=== PATIENT | female | born 1985 | race Caucasian/White ===

== ENCOUNTER 2019-07-16 12:39 | Inpatient (IN) | payer MEDICAID ==
[2019-07-16] MEDS: LACTATED RINGER'S 250 ML IV (14:49)
[2019-07-16] MEDS: CEFAZOLIN 2 GM/50 ML (PMX) 50 ML IVPB (14:50)
[2019-07-16 14:56] LABS: ADD MAN DIFF? NO
[2019-07-16 14:57] LABS: BASOPHILS % 0.3 % (0.0-2.0); HEMATOCRIT 33.1 % (37.0-47.0); HEMOGLOBIN 10.2 g/dl (12.0-16.0); LYMPHOCYTES # 0.9 10^3/ul (0.8-2.9); LYMPHOCYTES % 12.2 % (15.0-51.0); MEAN CORPUSCULAR HEMOGLOBIN 26.6 pg (29.0-33.0); MEAN CORPUSCULAR HGB CONC 30.8 g/dl (32.0-37.0); MEAN CORPUSCULAR VOLUME 86.4 fl (82.0-101.0); MEAN PLATELET VOLUME 9.6 fl (7.4-10.4); MONOCYTE # 0.8 10^3/ul (0.3-0.9); MONOCYTES % 11.1 % (0.0-11.0); NEUTROPHIL # 5.6 10^3/ul (1.6-7.5); NEUTROPHILS % 75.7 % (39.0-77.0); PLATELET COUNT 220 10^3/UL (140-415); RED BLOOD COUNT 3.83 10^6/ul (4.20-5.40); RED CELL DISTRIBUTION WIDTH 15.3 % (11.5-14.5)
[2019-07-16 14:57] LABS: WHITE BLOOD COUNT 7.3 10^3/ul (4.8-10.8)
[2019-07-16 15:23] LABS: ADD UMIC YES; ALANINE AMINOTRANSFERASE 20 IU/L (13-69); ALBUMIN 3.5 g/dl (3.3-4.9); ALKALINE PHOSPHATASE 101 IU/L (42-121); ANION GAP 11 (5-13); ASPARTATE AMINO TRANSFERASE 19 IU/L (15-46); BILIRUBIN,INDIRECT 0.5 mg/dl (0-1.1); BILIRUBIN,TOTAL 0.5 mg/dl (0.2-1.3); BLOOD UREA NITROGEN 7 mg/dl (7-20); CALCIUM 8.7 mg/dl (8.4-10.2); CARBON DIOXIDE 22 mmol/L (21-31); CHLORIDE 101 mmol/L (97-110); CREATININE 0.53 mg/dl (0.44-1.00); Estimated GFR > 60 mL/min (>60); GLUCOSE 82 mg/dl (70-220); POTASSIUM 3.5 mmol/L (3.5-5.1); SODIUM 134 mmol/L (135-144); UR ASCORBIC ACID NEGATIVE (NEGATIVE); UR BACTERIA FEW /HPF (NONE SEEN); UR BILIRUBIN (Dip) NEGATIVE (NEGATIVE); UR BLOOD (Dip) 1+ mg/dL (NEGATIVE); UR CLARITY CLOUDY (CLEAR); UR COLOR AMBER (YELLOW); UR GLUCOSE (Dip) NEGATIVE (NEGATIVE); UR KETONES (Dip) 1+ mg/dL (NEGATIVE); UR LEUKOCYTE ESTERASE (Dip) 2+ Leu/ul (NEGATIVE); UR MUCUS MANY /HPF (NONE SEEN); UR NITRITE (Dip) POSITIVE (NEGATIVE); UR NONSQUAMOUS EPITHELIAL CELL 1 /HPF (NONE SEEN); UR RBC 2 /HPF (0-5); UR SPECIFIC GRAVITY (Dip) 1.015 (1.003-1.030); UR SQUAMOUS EPITHELIAL CELL MODERATE /HPF (FEW); UR TOTAL PROTEIN (Dip) 1+ mg/dl (NEGATIVE); UR UROBILINOGEN (Dip) 2+ mg/dL (NEGATIVE); UR WBC 153 /HPF (0-5)
[2019-07-16] MEDS: ACETAMINOPHEN 500 MG TAB PO (17:30)
[2019-07-16] MEDS: LACTATED RINGER'S 1,000 ML IV ×2 (20:57→23:47)
[2019-07-16] MEDS: CEFAZOLIN 1 GM/50 ML (PMX) 50 ML IVPB (22:00)
[2019-07-17] MEDS: ACETAMINOPHEN 500 MG TAB PO ×3 (00:52→23:13)
[2019-07-17] MEDS: LACTATED RINGER'S 1,000 ML IV ×4 (05:34→23:07)
[2019-07-17] MEDS: CEFAZOLIN 1 GM/50 ML (PMX) 50 ML IVPB (05:43)
[2019-07-17] MEDS: CEFAZOLIN 2 GM/50 ML (PMX) 50 ML IVPB ×2 (14:32→21:54)
[2019-07-18] MEDS: CEFAZOLIN 2 GM/50 ML (PMX) 50 ML IVPB ×3 (05:39→22:12)
[2019-07-18] MEDS: LACTATED RINGER'S 1,000 ML IV ×2 (07:24→16:46)
[2019-07-18] MEDS: ACETAMINOPHEN 500 MG TAB PO (16:42)
[2019-07-19] MEDS: LACTATED RINGER'S 1,000 ML IV (01:15)
[2019-07-19] MEDS: CEFAZOLIN 2 GM/50 ML (PMX) 50 ML IVPB (05:46)
== END 2019-07-19 13:18 | disposition home or self-care (01) | DRG 833 ==
LOC: OBT 12:39 → L-D 12:43 → OBT 17:07 → L-D 17:01 → PP1 17:51
DX: O23.03 Infections of kidney in pregnancy, third trimester (principal); Z3A.30 30 weeks gestation of pregnancy
CPT/HCPCS: 36415; 76817; 76818; 80053; 81001; 85025; 87086; 96360; 96361

== ENCOUNTER 2019-08-11 18:48 | Inpatient (IN) | payer MEDICAID ==
[2019-08-11] MEDS ORDERED: LACTATED RINGER'S 1,000 ML IV (20:00)
[2019-08-11] MEDS: LACTATED RINGER'S 1,000 ML IV ×2 (20:52→22:13)
[2019-08-11 22:11] LABS: ADD UMIC YES; UR ASCORBIC ACID NEGATIVE (NEGATIVE); UR BILIRUBIN (Dip) NEGATIVE (NEGATIVE); UR BLOOD (Dip) NEGATIVE (NEGATIVE); UR CALCIUM OXALATE CRYSTAL MANY /HPF (NONE SEEN); UR CLARITY CLOUDY (CLEAR); UR COLOR AMBER (YELLOW); UR GLUCOSE (Dip) NEGATIVE (NEGATIVE); UR KETONES (Dip) TRACE mg/dL (NEGATIVE); UR LEUKOCYTE ESTERASE (Dip) NEGATIVE Leu/ul (NEGATIVE); UR MUCUS MANY /HPF (NONE SEEN); UR NITRITE (Dip) NEGATIVE (NEGATIVE); UR RBC 5 /HPF (0-5); UR SPECIFIC GRAVITY (Dip) 1.033 (1.003-1.030); UR SQUAMOUS EPITHELIAL CELL MODERATE /HPF (FEW); UR TOTAL PROTEIN (Dip) 1+ mg/dl (NEGATIVE); UR UROBILINOGEN (Dip) 2+ mg/dL (NEGATIVE); UR WBC 0 /HPF (0-5)
[2019-08-11] MEDS ORDERED: MAGNESIUM SULFATE 20 GM/500 ML 500 ML IV ×2 (22:13→22:14)
[2019-08-11] MEDS ORDERED: MAGNESIUM SULFATE 4 GM/100 ML 100 ML IV (22:30)
[2019-08-11 22:44] LABS: ADD MAN DIFF? NO
[2019-08-11 22:50] LABS: WHITE BLOOD COUNT 9.1 10^3/ul (4.8-10.8)
[2019-08-11 22:50] LABS: BASOPHILS % 0.2 % (0.0-2.0); EOSINOPHILS # 0.1 10^3/ul (0.0-0.5); EOSINOPHILS % 0.8 % (0.0-7.0); HEMATOCRIT 32.5 % (37.0-47.0); HEMOGLOBIN 10.3 g/dl (12.0-16.0); LYMPHOCYTES # 1.7 10^3/ul (0.8-2.9); LYMPHOCYTES % 18.4 % (15.0-51.0); MEAN CORPUSCULAR HEMOGLOBIN 26.3 pg (29.0-33.0); MEAN CORPUSCULAR HGB CONC 31.7 g/dl (32.0-37.0); MEAN CORPUSCULAR VOLUME 82.9 fl (82.0-101.0); MEAN PLATELET VOLUME 10.4 fl (7.4-10.4); MONOCYTE # 0.7 10^3/ul (0.3-0.9); MONOCYTES % 7.7 % (0.0-11.0); NEUTROPHIL # 6.6 10^3/ul (1.6-7.5); NEUTROPHILS % 72.5 % (39.0-77.0); PLATELET COUNT 229 10^3/UL (140-415); RED BLOOD COUNT 3.92 10^6/ul (4.20-5.40); RED CELL DISTRIBUTION WIDTH 15.1 % (11.5-14.5)
[2019-08-11] MEDS: MAGNESIUM SULFATE 4 GM/100 ML 100 ML IV (23:03)
[2019-08-11 23:09] LABS: PROTIME 13.3 Sec (11.9-14.9)
[2019-08-11 23:10] LABS: PARTIAL THROMBOPLASTIN TIME 28.8 Sec (23.0-35.0)
[2019-08-11 23:11] LABS: ALANINE AMINOTRANSFERASE 16 IU/L (13-69); ALBUMIN 3.2 g/dl (3.3-4.9); ALBUMIN/GLOBULIN RATIO 0.96; ALKALINE PHOSPHATASE 141 IU/L (42-121); ANION GAP 6 (5-13); ASPARTATE AMINO TRANSFERASE 16 IU/L (15-46); BILIRUBIN,INDIRECT 0.3 mg/dl (0-1.1); BILIRUBIN,TOTAL 0.3 mg/dl (0.2-1.3); BLOOD UREA NITROGEN 9 mg/dl (7-20); CARBON DIOXIDE 23 mmol/L (21-31); CHLORIDE 104 mmol/L (97-110); CREATININE 0.48 mg/dl (0.44-1.00); Estimated GFR > 60 mL/min (>60); GLUCOSE 83 mg/dl (70-220); POTASSIUM 3.9 mmol/L (3.5-5.1); SODIUM 133 mmol/L (135-144); TOTAL PROTEIN 6.5 g/dl (6.1-8.1)
[2019-08-11] MEDS: MAGNESIUM SULFATE 40GM/1000ML 1,000 ML IV (23:32)
[2019-08-12] MEDS ORDERED: CARBOPROST 250 MCG INJ IM ×2 (01:00→06:30)
[2019-08-12] MEDS ORDERED: METHYLERGONOVINE 0.2 MG INJ IM ×2 (01:00→06:30)
[2019-08-12] MEDS ORDERED: OXYTOCIN 30 UNITS/LR 500 ML IV ×2 (01:00→06:30)
[2019-08-12] MEDS ORDERED: MISOPROSTOL 200 MCG TAB PR ×2 (01:00→06:30)
[2019-08-12] MEDS: CEFAZOLIN 3 GM in DEXTROSE 5% 100 ML IV (01:00)
[2019-08-12] MEDS ORDERED: OXYTOCIN 30 UNITS/LR 500 ML BAG IV (02:10)
[2019-08-12] MEDS ORDERED: FENTAnyl 50 MCG/ML VIAL (02:10)
[2019-08-12] MEDS ORDERED: PHENYLephrine (100 MCG/ML) 10ML SYG (03:20)
[2019-08-12] MEDS ORDERED: EPHEDrine 25 MG/5 ML SYG (03:20)
[2019-08-12] MEDS ORDERED: NALBUPHINE HCL (10 MG/1 ML) INJ IV (04:00)
[2019-08-12] MEDS ORDERED: NALOXONE (0.4 MG/ML) INJ IV (04:00)
[2019-08-12] MEDS ORDERED: HYDROmorphONE 0.5 MG/0.5 ML SYG IV ×2 (04:00)
[2019-08-12] MEDS ORDERED: TRIMETHOBENZAMIDE 100 MG/ML VIAL IM (04:00)
[2019-08-12] MEDS ORDERED: morphine 2 MG INJ IV ×2 (04:00)
[2019-08-12] MEDS: ONDANSETRON 4 MG INJ IV (04:16)
[2019-08-12] MEDS: OXYTOCIN 30 UNITS/LR 500 ML IV ×2 (04:20→08:29)
[2019-08-12] MEDS: DIPHENHYDRAMINE 50 MG INJ IV (04:57)
[2019-08-12] MEDS: KETOROLAC 30 MG INJ IV ×2 (05:29→11:55)
[2019-08-12] MEDS ORDERED: NACL 0.9% 3 ML SYG IV (06:30)
[2019-08-12] MEDS ORDERED: LANOLIN HPA 1 PKT TOP (06:30)
[2019-08-12] MEDS: SENNA/DOCUSATE NA (8.6MG/50MG) TAB PO ×2 (09:41→21:49)
[2019-08-12 10:46] LABS: ADD MAN DIFF? NO
[2019-08-12 10:48] LABS: BASOPHILS % 0.4 % (0.0-2.0); EOSINOPHILS % 0.3 % (0.0-7.0); HEMATOCRIT 31.2 % (37.0-47.0); HEMOGLOBIN 9.9 g/dl (12.0-16.0); LYMPHOCYTES # 1.1 10^3/ul (0.8-2.9); MEAN CORPUSCULAR HEMOGLOBIN 26.2 pg (29.0-33.0); MEAN CORPUSCULAR HGB CONC 31.7 g/dl (32.0-37.0); MEAN CORPUSCULAR VOLUME 82.5 fl (82.0-101.0); MEAN PLATELET VOLUME 10.1 fl (7.4-10.4); MONOCYTE # 0.8 10^3/ul (0.3-0.9); MONOCYTES % 7.3 % (0.0-11.0); NEUTROPHIL # 8.9 10^3/ul (1.6-7.5); NEUTROPHILS % 81.6 % (39.0-77.0); PLATELET COUNT 202 10^3/UL (140-415); RED BLOOD COUNT 3.78 10^6/ul (4.20-5.40); RED CELL DISTRIBUTION WIDTH 14.9 % (11.5-14.5)
[2019-08-12 10:48] LABS: WHITE BLOOD COUNT 10.9 10^3/ul (4.8-10.8)
[2019-08-12 11:40] LABS: HEPATITIS B SURFACE ANTIGEN NEGATIVE (NEGATIVE)
[2019-08-12 15:21] LABS: RAPID PLASMA REAGIN NONREACTIVE (NR)
[2019-08-12] MEDS: LACTATED RINGER'S 1,000 ML IV (16:15)
[2019-08-13] MEDS: LACTATED RINGER'S 1,000 ML IV (00:53)
[2019-08-13] MEDS: KETOROLAC 30 MG INJ IV (02:31)
[2019-08-13] MEDS: IBUPROFEN 600 MG TAB PO ×3 (05:34→21:37)
[2019-08-13] MEDS: SENNA/DOCUSATE NA (8.6MG/50MG) TAB PO ×2 (08:50→21:37)
[2019-08-13] MEDS: OXYCODONE/ACETAMINOPHEN (5/325) TAB PO (21:38)
[2019-08-14] MEDS: IBUPROFEN 600 MG TAB PO ×5 (03:00→23:56)
[2019-08-14] MEDS: SENNA/DOCUSATE NA (8.6MG/50MG) TAB PO ×2 (10:06→21:08)
[2019-08-14] MEDS: OXYCODONE/ACETAMINOPHEN (5/325) TAB PO (10:06)
[2019-08-15] MEDS: IBUPROFEN 600 MG TAB PO ×2 (06:19→12:02)
[2019-08-15] MEDS: SENNA/DOCUSATE NA (8.6MG/50MG) TAB PO (09:16)
[2019-08-15] MEDS: DIPHTH/TET/ACEL PERTUSS (ADULT) 0.5 ML VIAL IM* (09:28)
== END 2019-08-15 12:45 | disposition home or self-care (01) | DRG 788 ==
LOC: OBT 18:48 → L-D 18:49 → OBT 20:03 → L-D 22:13 → PP1 08-12 06:21
PROC: 10D00Z1 Extraction of Products of Conception, Low, Open Approach (ICD-10-PCS; principal; 2019-08-12 02:00)
DX: O60.13X0 Preterm labor second trimester with preterm delivery third trimester, not applicable or unspecified (principal); O65.5 Obstructed labor due to abnormality of maternal pelvic organs; O34.211 Maternal care for low transverse scar from previous cesarean delivery; Z3A.34 34 weeks gestation of pregnancy; Z37.0 Single live birth
CPT/HCPCS: 36415; 76815; 76818; 80053; 81001; 85025; 85610; 85730; 86592; 86850; 86900; 86901; 87086; 87340; 96360